=== PATIENT | female | born 1975 | race Caucasian/White ===

== ENCOUNTER 2019-11-23 15:31 | Emergency (ER) | payer OTHER, MEDICAID, SELFPAY ==
[2019-11-23 15:49] VITALS: BP 135/95; PULSE 98; RESP 18; TEMP 37.1; O2SAT 95; BMI 23.9
--- NOTE | 2019-11-23 15:54 | HMH.EDUTC ---
[facility] Disposition Clinical Impression: Bronchitis Sinusitis Qualifiers: Sinusitis location: unspecified location Chronicity: unspecified Qualified Code(s): J32.9 - Chronic sinusitis, unspecified Disposition: Home, Self-Care Condition on Discharge: Good Instructions: Sinusitis, Sinus Headache, Acute Bronchitis, DI for Sinusitis, Levofloxacin Additional Instructions: ? Start antibiotic today. Be sure to complete entire prescription even if feeling better ? Monitor temp. Tylenol every 4 hours as needed and / or ibuprofen every 6 hours as needed ( As long as your primary care physician has told you that it ok to take both. For fever/aches/pains ER if no less than 101 despite Tylenol or Motrin ? Humidifier/vaporizer or hot steamy shower ? Inhaler every 4-6 hours as needed like we discussed. If unsure how to use it, ask pharmacist to demonstrate how. Should help open airways and improve cough, wheezing, and shortness of breath ? Mucinex during the day for your cough and cough suppressant only at night. Be sure to drink lots of water. Insurance may not cover a prescriptions for mucinex. Might be cheaper to get 400mg tablets and take 2 tablet in the morning, mid-day and evening with lots of water. Stop taking Amoxcillin and start Levaquin Follow up with Family Doctor if no improvement Call back to the [facility] in 48-72 hours to see if your test results are back and what the result is You was given handout with instructions for Self Quarantine and Self Isolation make sure to follow instructions to help prevent the spread Follow up IMMEDIATELY for new or worsening of symptoms OR no noticeable improvement over the next 48-72 hours. 911 immediately for any life threatening symptoms such as chest pain or difficulty breathing Prescriptions: Albuterol Sulfate [Proventil-HFA 90mcg/puff Inh] 1 - 2 puffs IH Q4HP PRN #1 inh PRN Reason: Shortness Of Breath Transmission Status: Pending to [id number] Fluticasone Propionate [Flonase 50mcg nasal spray 16gm] 1 - 2 spr NS DAILY #1 bottle Transmission Status: Pending to [id number] levoFLOXacin [Levaquin 750mg tablet] 750 mg PO DAILY #7 tab Transmission Status: Pending to [id number] Referrals: PCP,No [Primary Care Provider] - As needed Time of Disposition: 16:13 Medical Decision Making - [place] Inquiry Pt receiving controlled substance: No [place] was queried for this patient: No Vital Signs: 11/23/19 15:49 Temperature 98.8 F Temperature Source Oral Pulse Rate [Radial] 98 H Respiratory Rate 18 Blood Pressure [Right Arm] 135/95 H Blood Pressure Mean [Right Arm] 108 Blood Pressure Source [Right Arm] Automatic Cuff Blood Pressure Position [Right Arm] Sitting 02 Sat by Pulse Oximetry 95 Oxygen Delivery Method Room Air Orders (Tests/Meds): ORDERS Category Date Time Status Covid-19 Nasal PCR Sendout [facility] 11/23/19 15:34 Ordered Medical Decision Narrative: Patient currently on amoxicillin but no improvement, discussed CXR and patient declined at this time discussed stopping the amoxicillin and changing medication to Levaquin, discussed with pharmacy and [facility] HPI - General Stated complaint: Cough,congestion,want covid test Time Seen by Provider: 11/23/19 15:55 Mode of Arrival: Ambulatory Source of Information: Patient Limitations: No Limitations Description of Symptoms (Recalled from Triage Doc. by RN): Cough x 1 week, been on an antibiotic since thursday for bronchitis HEENT Symptoms (Recalled from RN notes): Yes Resp Symptoms (Recalled from RN notes): No Skin Symptoms (Recalled from RN notes): No MS Symptoms (Recalled from RN notes): No Functional Status (Recalled from RN notes): wnl - History of Present Illness Provider Complaint: Patient states that she has been on antibiotics for about a week for Bronichitis and she has not got any better States that she has still been having sinus pain and pressure along with cough and chest congesti
[2019-11-23 16:17] VITALS: BP 135/95; PULSE 98; RESP 18; TEMP 37.1; O2SAT 95
[2019-11-25 13:32] LABS: Covid-19 Nasal PCR Sendout Lex Not Detected
== END 2019-11-23 16:18 | disposition home or self-care (01) ==
PROVIDERS: Emergency Provider Nurse Practitioner
DX: J20.9 Acute bronchitis, unspecified (principal); J32.9 Chronic sinusitis, unspecified; Z03.818 Encounter for observation for suspected exposure to other biological agents ruled out; F17.210 Nicotine dependence, cigarettes, uncomplicated
CPT/HCPCS: 99201; U0004